=== PATIENT | male | born 1995 | race Caucasian/White ===

== ENCOUNTER 2017-08-09 16:49 | Emergency (ER) | payer BC ==
[2017-08-09 17:50] VITALS: BP 132/74; PULSE 93; RESP 16; TEMP 99.1; O2SAT 95
[2017-08-09 20:28] LABS: PLATELET COUNT 262 10^3/uL (150-400)
[2017-08-09] MEDS ORDERED: AZITHROMYCIN 250 MG TAB PO ONE (20:38)
[2017-08-09] MEDS ORDERED: EMTRICITABINE/TENOFOVIR 200MG/300MG TAB PO ONE (20:38)
[2017-08-09] MEDS ORDERED: RALTEGRAVIR 400 MG TAB PO ONE (20:40)
--- NOTE | 2017-08-09 20:40 | EDPHY ---
H & P Time Seen by Provider: 08/09/17 19:10 HPI/ROS: CHIEF COMPLAINT: Possible STD and HIV exposure HISTORY OF PRESENT ILLNESS: 21-year-old male presents to the emergency department by private vehicle with concerns about possible STD and HIV exposure. The patient was having sex with another male using a condom yesterday morning. He states that the condom that broke. He apparently spoke with someone at [facility] and they advised that he come to the emergency department for post exposure prophylaxis. Currently the patient has no complaints. He denies abdominal pain. Denies chest pain or difficulty breathing. Denies penile discharge. Denies dysuria or any other urinary symptoms. He has had gonorrhea in the past. He denies neck or back pain. REVIEW OF SYSTEMS: Constitutional: No fever, no chills. Eyes: No double or blurry vision. ENT: No sore throat. Respiratory: No cough, no shortness of breath. Cardiac: No chest pain. Gastrointestinal: No abdominal pain, vomiting or diarrhea. Genitourinary: No dysuria. Musculoskeletal: No neck or back pain. Skin: No rashes. Neurological: No headache. Past Medical/Surgical History: Gonorrhea in the past Social History: [employer] student Smoking Status: Never smoked Physical Exam: General Appearance: Alert, no distress. Vital signs are stable. Eyes: Pupils equal and round. Extraocular motions are all intact. ENT: Mouth: Mucous membranes moist. Respiratory: No wheezing, rhonchi, or rales, lungs are clear to auscultation. Cardiovascular: Regular rate and rhythm. Gastrointestinal: Abdomen is soft and nontender, no masses, no rebound or guarding, bowel sounds normal. Neurological: Alert and oriented x 3, cranial nerves II through XII grossly intact Skin: Warm and dry, no rashes. Musculoskeletal: Nontender to palpate along the cervical, thoracic or lumbar spine. Neck is supple. Extremities: Full range of motion and no peripheral edema. Psychiatric: Patient is oriented X 3, there is no agitation. Constitutional: Initial Vital Signs Temperature (C) 37.3 C 08/09/17 17:48 Heart Rate 93 08/09/17 17:48 Respiratory Rate 16 08/09/17 17:48 Blood Pressure 132/74 H 08/09/17 17:48 O2 Sat (%) 95 08/09/17 17:48 O2 Delivery Mode Room Air Allergies/Adverse Reactions: No Known Allergies Allergy (Unverified 08/09/17 17:47) Home Medications: Medication Instructions Recorded Emtricitabine/Tenofovir (Tdf) 1 each PO DAILY #7 tablet 08/09/17 [Truvada 200 mg-300 mg Tablet] Raltegravir [Isentress] 400 mg PO BID #14 tab 08/09/17 Medical Decision Making ED Course/Re-evaluation: 21-year-old male with possible STD and HIV exposure. I did encourage the patient to try to contact the partner to see if they have symptoms or any history. I spoke with Dr. Dusty Galindo, on-call infectious disease provider, who recommended laboratory studies including HIV antibody, hepatitis-B, hepatitis-C , CBC and chemistries. He recommended starting the patient on Truvada and Isentress. They will follow up with him on Wednesday in the clinic. Patient was offered testing and/or treatment for possible gonorrhea Chlamydia. The patient elected to do the treatment. He was given 250 mg IM Rocephin and 1 g of Zithromax in p.o.. The patient was given 1st dose of Truvada and Isentress in the emergency department as well as a prescription for a week's supply. He will follow up with Infectious Disease this week. Differential Diagnosis: Including but not limited to sexually transmitted infection, urinary tract infection, pyelonephritis - Data Points Laboratory Results: Laboratory Results 08/09/17 20:20 08/09/17 20:20 08/09/17 08/09/17 08/09/17 20:20 20:20 20:20 WBC 7.01 10^3/uL 10^3/uL (3.80-9.50) RBC 6.45 10^6/uL H 10^6/uL (4.40-6.38) Hgb 18.3 g/dL H g/dL (13.7-17.5) Hct 54.6 % H % (40.0-51.0) MCV 84.7 fL fL (81.5-99.8) MCH 28.4 pg pg (27.9-34.1) MCHC 33.5 g/dL g/dL (32.4-36.7) RDW 17.3 % H % (11.5-15.2) Plt Count 262 10^3/uL 10^3/uL (150-400) MPV 8.9 fL fL (8.7-11.7) Neut % (Auto) 64.4 % % (39.3-74.2) Lymph % (Auto) 27.8 % % (15.0-45.0) [place] % (Auto) 6.6 % % (4.5-13.0) Eos % (Auto) 0.3 % L % (0.6-7.6) Baso % (Auto) 0.3 % % (0.3-1.7) Nucleat RBC Rel Count 0.0 % % (0.0-0.2) Absolute Neuts (auto) 4.52 10^3/uL 10^3/uL (1.70-6.50) Absolute Lymphs (auto) 1.95 10^3/uL 10^3/uL (1.00-3.00) Absolute Monos (auto) 0.46 10^3/uL 10^3/uL (0.30-0.80) Absolute Eos (auto) 0.02 10^3/uL L 10^3/uL (0.03-0.40) Absolute Basos (auto) 0.02 10^3/uL 10^3/uL (0.02-0.10) Absolute Nucleated RBC 0.00 10^3/uL 10^3/uL (0-0.01) Immature Gran % 0.6 % % (0.0-1.1) Immature Gran # 0.04 10^3/uL 10^3/uL (0.00-0.10) Sodium 140 mEq/L mEq/L (135-145) Potassium 4.5 mEq/L mEq/L (3.5-5.2) Chloride 104 mEq/L mEq/L (97-110) Carbon Dioxide 25 mEq/l mEq/l (22-31) Anion Gap 11 mEq/L mEq/L (8-16) BUN 12 mg/dL mg/dL (7-23) Creatinine 1.1 mg/dL mg/dL (0.7-1.3) Estimated GFR > 60 Glucose 80 mg/dL mg/dL (70-100) Calcium 9.7 mg/dL mg/dL (8.5-10.4) Total Bilirubin 0.7 mg/dL mg/dL (0.1-1.4) AST 34 IU/L IU/L (17-59) ALT 44 IU/L IU/L (21-72) Alkaline Phosphatase 68 IU/L IU/L (38-126) Total Protein 7.2 g/dL g/dL (6.3-8.2) Albumin 4.2 g/dL g/dL (3.5-5.0) Hep Bs Antibody POSITIVE (NEGATIVE) Hepatitis C Antibody NEGATIVE (NEGATIVE) HIV 1&2 Antibody NEGATIVE (NEGATIVE) Medications Given: Discontinued Medications Azithromycin (Zithromax) 1,000 mg PO EDNOW ONE PRN Reason: Protocol Stop: 08/09/17 20:39 Last Admin: 08/09/17 21:25 Dose: 1,000 mg Ceftriaxone Sodium (Rocephin Im Syringe) 250 mg IM EDNOW ONE PRN Reason: Protocol Stop: 08/09/17 20:39 Last Admin: 08/09/17 21:32 Dose: 250 mg Emtricitabine/Tenofovir (Truvada) 1 tab PO EDNOW ONE Stop: 08/09/17 20:39 Last Admin: 08/09/17 21:25 Dose: 1 tab Raltegravir (Isentress) 400 mg PO EDNOW ONE Stop: 08/09/17 20:41 Last Admin: 08/09/17 21:25 Dose: 400 mg Departure - Departure Disposition: Home, Routine, Self-Care Clinical Impression: Post exposure prophylaxis HIV, Possible exposure to STD Condition: Good Instructions: Emtricitabine/Tenofovir (By mouth), Raltegravir (By mouth), Sexually Transmitted Diseases (ED), Condom Use (ED), Safe Sex (ED), Postexposure Prophylaxis (ED) Additional Instructions: Follow-up with Infectious Disease this week to recheck. Truvada and Isentress as prescribed. Referrals: Dusty Galindo MD [Medical Doctor] - 1-2 days without fail (Call tomorrow morning after 9:00 a.m. To schedule follow-up appointment.) Prescriptions: Emtricitabine/Tenofovir (Tdf) [Truvada 200 mg-300 mg Tablet] 1 each PO DAILY #7 tablet Raltegravir [Isentress] 400 mg PO BID #14 tab
[2017-08-09 21:30] LABS: HEPATITIS C ANTIBODY TOTAL NEGATIVE (NEGATIVE); HIV TYPE 1 AND 2 NEGATIVE (NEGATIVE)
--- NOTE | 2017-08-10 15:26 | EDPHY ---
ED Progress Note Narrative: Received a phone call from [facility] 08/10/17 at 1525 hrs informed me that they are unable to break his prescription for Truvada into anything smaller than a 28 day dose. Plan will therefore be to fill full 28 day course of Truvada as well as Isentress.
== END 2017-08-09 21:36 | disposition home or self-care (01) ==
DX: Z20.6 Contact with and (suspected) exposure to human immunodeficiency virus [HIV] (principal)
CPT/HCPCS: G0472; J0696